=== PATIENT | female | born 1965 ===

== ENCOUNTER → 2024-02-18 11:31 | Outpatient (REF) | payer SELFPAY | LOC: WDC 11:31 | PROVIDERS: ATTENDING PHYSICIAN Family Medicine | DX: Z12.31 Encounter for screening mammogram for malignant neoplasm of breast (principal) | CPT/HCPCS: 77063; 77067 ==

== ENCOUNTER → 2025-01-28 06:42 | Outpatient (REF) | payer SELFPAY | LOC: MRI 3T 06:42 | PROVIDERS: ATTENDING PHYSICIAN Family Medicine | DX: M50.20 Other cervical disc displacement, unspecified cervical region (principal) | CPT/HCPCS: 72141 ==

== ENCOUNTER → 2025-03-08 12:55 | Outpatient (REF) | payer SELFPAY | LOC: WDC 12:55 | PROVIDERS: ATTENDING PHYSICIAN Family Medicine | DX: Z12.31 Encounter for screening mammogram for malignant neoplasm of breast (principal) | CPT/HCPCS: 77063; 77067 ==